=== PATIENT | female | born 1955 | race Caucasian/White ===

== ENCOUNTER 2017-07-24 16:54 | Emergency (ER) | payer OTHER ==
[2017-07-24 17:41] VITALS: RESP 18; TEMP 98.8; O2SAT 93
[2017-07-24 18:40] LABS: % IMMATURE GRANULYOCYTES 0.2 % (0.0-1.1); ABSOLUTE IMMATURE GRANULOCYTES 0.01 10^3/uL (0.00-0.10); ADD DIFF? NO; ADD MORPH? NO; ADD SCAN? NO; ATYPICAL LYMPHOCYTE FLAG 0 (0-99); FRAGMENT RBC FLAG 0 (0-99); HEMATOCRIT 34.5 % (38.0-47.0); HEMOGLOBIN 11.8 g/dL (12.6-16.3); LEFT SHIFT FLG 0 (0-99); LIPEMIA HEMOLYSIS FLAG 90 (0-99); MEAN CELL HEMOGLOBIN 35.8 pg (27.9-34.1); MEAN CELL HEMOGLOBIN CONCENTR. 34.2 g/dL (32.4-36.7); MEAN CELL VOLUME 104.5 fL (81.5-99.8); MEAN PLATELET VOLUME 10.6 fL (8.7-11.7); PLATELET CLUMPS FLAG 0 (0-99); PLATELET COUNT 116 10^3/uL (150-400); RED CELL DISTRIBUTION WIDTH 13.4 % (11.5-15.2)
[2017-07-24 18:51] LABS: INR 1.15 (0.83-1.16); PROTIME(PATIENT) 14.4 SEC (12.0-15.0)
[2017-07-24 18:52] LABS: APTT 34.5 SEC (23.0-38.0)
[2017-07-24 18:53] LABS: ALANINE AMINOTRANSFERASE 80 IU/L (9-52); ALBUMIN 3.9 g/dL (3.5-5.0); ALKALINE PHOSPHATASE 137 IU/L (38-126); ANION GAP 14 mEq/L (8-16); ASPARTATE AMINOTRANSFERASE 162 IU/L (14-46); BILIRUBIN,TOTAL 1.7 mg/dL (0.1-1.4); CALCIUM 8.3 mg/dL (8.5-10.4); CARBON DIOXIDE 25 mEq/l (22-31); CHLORIDE 97 mEq/L (97-110); CREATININE 0.5 mg/dL (0.6-1.0); GLOMERULAR FILTRATION RATE > 60; GLUCOSE 56 mg/dL (70-100); POTASSIUM 4.3 mEq/L (3.5-5.2); SODIUM 136 mEq/L (134-144); TOTAL PROTEIN 7.2 g/dL (6.3-8.2)
[2017-07-24 19:01] LABS: LEUKOCYTE ESTERASE,URINE NEGATIVE (NEGATIVE); NITRITE,URINE NEGATIVE (NEGATIVE)
[2017-07-24 19:03] LABS: COLOR DARK YELLOW
--- NOTE | 2017-07-24 19:24 | EDPHY ---
H & P Time Seen by Provider: 07/24/17 17:49 HPI/ROS: This patient complains of generalized weakness and intermittent tremors with recent history of a fall in which she struck her head. The patient describes a mechanical fall that occurred 5 days prior to arrival she was standing with 1 foot up on a counter top applying lotion to her leg when she reached for the telephone, lost her balance falling backward striking her occiput and "tailbone ". Later that same day-Friday she went out to eat and developed esophageal food impaction treated at [facility] without requiring endoscopy. She mentioned the fall but this with the food impaction dominating the visit, she reports no significant evaluation of her head injury. She reports no ongoing mild occipital headache since that time. She denies any loss of consciousness from the injury or feeling of being dazed. However she has noticed intermittent tremors or shaking. She reports the "tailbone pain "has now nearly resolved. However, with the generalized weakness since that incident and she describes a nights ago dropping the telephone and having difficulty standing back up after she bent down on all fours to brain picker the phone due to generalized weakness. She had to crawl in all 4s to a piece of furniture and drag herself back up thereafter. She was driven in by a friend for further evaluation by private vehicle after she mention the symptoms to her friend. ROS: Constitutional: No recent fevers. Generalized weakness as per HPI HEENT: No facial injuries. No URI symptoms. Neuro: No focal numbness tingling weakness. She denies any acute confusion. Musculoskeletal: No midline neck or back pain currently. No bowel or bladder incontinence Pulmonary: No cough shortness of breath other than her baseline dyspnea from COPD for which she takes home O2 with no recent increasing requirement Cardiovascular: No heart palpitations or chest pain. GI: Shorts mild intermittent crampy abdominal discomfort but none at the moment. : No urinary symptoms except for darker urine than usual. Integumentary: She has some bruising she reports from the fall including a bruise on her forehead. She also reports mild abrasions to the prepatellar region from crawling on all fours. She treated this with cleaning at home 2 days ago. No significant lingering pain to the abrasion sites. No underlying bony pain. Complete review of symptoms otherwise negative. Social History: Patient admits drinking alcohol-few days a week and hesitates initially on describing how much but then reports 3 drinks or so-occasionally more. No drug use. Smoking Status: Former smoker Physical Exam: General Appearance: Alert, no distress. Eyes: Pupils equal and round no pallor or injection. ENT, Mouth: Mucous membranes moist. Ears: Clear bilaterally with no hemotympanum intraoral exam no dental trauma. She has mild occipital tenderness. Neck: No midline tenderness Back: No midline tenderness. No significant sacral tenderness minimal coccyx tenderness. Respiratory: There are no retractions, lungs are clear to auscultation. Cardiovascular: Regular rate and rhythm. No murmur gallop rub. No JVD or peripheral edema. Gastrointestinal: Abdomen is soft and nontender, no masses, bowel sounds normal. Neurological: GCS 15. No focal deficits are appreciated. Cranial nerves 2-12 grossly intact. Currently no tremor. Skin: Warm and dry, no rashes. very superficial abrasions to bilateral prepatellar regions with no erythema, discharge. No underlying bony tenderness Extremities are symmetrical, full range of motion. Psychiatric: Mood and affect normal DIFFERENTIAL DIAGNOSIS: After history and physical exam differential diagnosis was considered for metabolic disarray, cardiac ischemic disease, renal failure, UTI, subdural hemorrhage or concussion Constitutional: Initial Vital Signs Temperature (C) 37.1 C 07/24/17 17:17 Heart Rate 112 H 07/24/17 17:17 Respiratory Rate 18 07/24/17 17:17 Blood Pressure 143/89 H 07/24/17 17:17 O2 Sat (%) 93 07/24/17 17:17 O2 Delivery Mode Nasal Cannula O2 (L/minute) 2 Allergies/Adverse Reactions: cefaclor [From [facility]] Allergy (Unknown, Verified 07/24/17 17:24) ascorbic acid Allergy (Verified 07/24/17 17:24) codeine Allergy (Verified 07/24/17 17:24) Penicillins Allergy (Verified 07/24/17 17:24) Hives Home Medications: Medication Instructions Recorded Albuterol [Proventil Inhaler HFA 2 puffs IH BID 08/11/15 (*)] Aspirin [Aspirin 325 mg (*)] 325 mg PO DAILY 08/11/15 C/E/Zn/Cu/OM3/DHA/EPA/LUT/ZEAX 2 each PO DAILY 08/11/15 [Preservision Areds 2 Softgel] Calcium Carb W/Vit D [Calcium Carb 500 mg PO BID 08/11/15 W/Vit D 500/200 (*)] Cholecalciferol Vit D3 [Vitamin D3 1,000 units PO DAILY 08/11/15 (*)] Cyanocobalamin [Vitamin B12 (*)] 1,000 mcg PO DAILY 08/11/15 Fluticasone/Salmeter 500/50Mcg 1 puffs IH BID 08/11/15 [Advair 500/50 (*)] Hydroxychloroquine Sulfate 200 mg PO DAILY 08/11/15 [Plaquenil 200 mg (*)] Ipratropium/Albuterol [Duoneb (*)] 3 ml IH QID 08/11/15 Omeprazole [Prilosec 20 mg] 20 mg PO DAILY 08/11/15 Pyridoxine HCl [Vitamin B-6 100 mg 400 mg PO DAILY 08/11/15 (*)] Vitamin E Acetate [VITAMIN E] 400 unit PO DAILY 08/11/15 guaiFENesin [Mucinex 600 MG (*)] 1,200 mg PO BID 08/11/15 Azithromycin [Zithromax] 250 mg PO DAILY #6 tab 08/13/15 LORazepam [Ativan (*)] 1 mg PO Q4 PRN #20 tab 08/13/15 Methocarbamol [Robaxin] 750 mg PO TID PRN #90 tab 08/13/15 Thiamine HCl [Vitamin B-1] 100 mg PO DAILY #0 tab 08/13/15 predniSONE [Deltasone] 60 mg PO DAILY #9 tablet 08/13/15 MDM/Departure - MDM Diagnostics: 12 lead EKG performed shortly after arrival at 6:14 p.m.-indication generalized weakness rule out cardiac ischemic disease or other Sinus a rhythm at 97 Intervals: Normal throughout [place]: Normal throughout ST segments: Normal throughout Overall assessment sinus arrhythmia, otherwise normal Imaging Results: Imaging Impressions Head CT 07/24/17 18:53 Impression: 1. No subdural hematoma or acute intracranial process. 2. Mild cerebral atrophy. Findings discussed with Emergency Department physician, Anuj King, at 1914 hours 07/24/2017. Imaging: Discussed imaging studies w/ scallop shucker Radiologist ED Course/Re-evaluation: Discussion: I suspect this patient is drinking more alcohol than she admits. I counseled regarding this concern encouraged her to decrease her alcohol intake. After workup, no evidence of cardiac ischemic disease, significant metabolic disarray, bony fracture from fall or other. She will follow up with primary care physician for any ongoing symptoms and understands need to return emergency department should she have any worsening of symptoms - Depart Disposition: Home, Routine, Self-Care Clinical Impression: Generalized weakness, Multiple contusions Closed head injury Qualifiers: Encounter type: initial encounter Qualified Code(s): S09.90XA - Unspecified injury of head, initial encounter Condition: Good Instructions: Head Injury (ED), Contusion in Adults (ED), Abrasion (ED) Additional Instructions: Diagnoses: 1. Generalized weakness 2. Coccyx contusion 3. Abrasions 4. Minor head injury No urinary tract infection today. No significant electrolyte abnormalities. Plan: Tylenol for discomfort if needed Drink plenty fluids Decrease your alcohol intake. Clean abrasions daily with warm soapy water Follow up primary care physician for any ongoing symptoms. Return emergency department for any significant worsening despite the treatment plan. Referrals: Eddie Freire MD [Primary Care Provider] - As per Instructions
[2017-07-24 20:05] VITALS: BP 162/89; PULSE 98
--- NOTE | 2017-07-24 21:20 | CPEKG ---
Heart Rate: 97 RR Interval: 619 P-R Interval: 128 QRSD Interval: 80 QT Interval: 372 QTC Interval: 473 P [place]: 45 QRS [place]: 37 T Wave [place]: 64 EKG Severity - OTHERWISE NORMAL ECG - EKG Impression: SINUS ARRHYTHMIA, RATE 82-116 Preliminary Awaiting MD Review
== END 2017-07-24 20:05 | disposition home or self-care (01) ==
LOC: CED 16:54
DX: S09.90XA Unspecified injury of head, initial encounter (principal); T14.8XXA Other injury of unspecified body region, initial encounter; R53.1 Weakness; Z87.891 Personal history of nicotine dependence; Z79.82 Long term (current) use of aspirin; W01.198A Fall on same level from slipping, tripping and stumbling with subsequent striking against other object, initial encounter
CPT/HCPCS: 70450-PO; 80053-PO; 81003-PO; 85025-PO; 85610-PO; 85730-PO

== ENCOUNTER → 2017-08-01 | Outpatient (CLI) | payer OTHER | LOC: CIMAGING 16:25 | PROVIDERS: ATTEND Family Medicine | DX: R10.2 Pelvic and perineal pain (principal) | CPT/HCPCS: 72170-PO ==